=== PATIENT | female | born 1980 | race Caucasian/White ===

== ENCOUNTER → 2021-07-25 | Outpatient (CLI) | payer OTHER ==
[~2021-07-25] MED LIST: ALL10TAB3 PO; COLA100C5 PO; LEVO125T4 PO; MIRE1IUD IU; VITA100093 PO
== END ==
LOC: M WHC 12:06
PROVIDERS: ATTEND Family Medicine
DX: R10.2 Pelvic and perineal pain (principal); Z97.5 Presence of (intrauterine) contraceptive device

== ENCOUNTER → 2022-07-08 | Outpatient (REF) | payer OTHER | LOC: M LAB REF 17:38 | PROVIDERS: ATTEND Nurse Practitioner Adult Health | DX: J02.9 Acute pharyngitis, unspecified (principal) ==